=== PATIENT | male | born 1970 | race African-American/Black ===

== ENCOUNTER 2018-07-03 06:51 | Emergency (ER) | payer SELFPAY ==
[2018-07-03 06:54] VITALS: BP 144/92; PULSE 95; TEMP 97.8; BMI 25.8
[2018-07-03] MEDS ORDERED: SODIUM CHLORIDE 1,000 ML IV STA (07:33)
[2018-07-03 07:59] LABS: BASO % 0.3 % (0-2.0); EOS % 0.1 % (0-4.5); HEMATOCRIT 36.8 % (35.4-49); HEMOGLOBIN 12.2 GM/dL (11.7-16.9); LYMPH % 21.8 % (8-40); MCHC 33.2 g/dl (32.0-35.9); MEAN CELL VOLUME 84.5 fl (80-96); MONO % 16.5 % (3.8-10.2); NEUT % 61.3 % (42.8-82.8); RBC 4.35 M/mm3 (4.00-5.60); RDW 14.1 % (11.9-15.9); WHITE BLOOD COUNT 5.2 K/mm3 (4.0-10.0)
[2018-07-03 08:21] LABS: PROTHROMBIN TIME (PATIENT) 11.8 SEC (9.7-13.0)
[2018-07-03 08:35] LABS: ALBUMIN 3.6 g/dl (3.4-5.0); ALK PHOS 126 U/L (45-117); ANION GAP 17 MMOL/L (8-16); BILIRUBIN,TOTAL 0.4 mg/dL (0.2-1); BLOOD UREA NITROGEN 15 mg/dL (7-18); CALCIUM 8.3 mg/dL (8.5-10.1); CHLORIDE 100 mmol/L (98-107); CO2 20 mmol/L (21-32); CREATININE 0.6 mg/dL (0.55-1.3); GLUCOSE,RANDOM 93 mg/dL (74-106); MAGNESIUM 1.9 mg/dL (1.8-2.4); POTASSIUM 4.5 mmol/L (3.5-5.1); SGOT/AST 68 U/L (15-37); SGPT/ALT 41 U/L (13-61); SODIUM 137 mmol/L (136-145); TOT PROT 7.8 g/dl (6.4-8.2)
[2018-07-03] MEDS ORDERED: KETOROLAC TROMETHAMINE 15 MG/ML VIAL IVPUSH ONE (08:53)
[2018-07-03] MEDS ORDERED: KETOROLAC TROMETHAMINE 15 MG/ML VIAL ONE (09:14)
--- NOTE | 2018-07-03 09:14 | PDOC ---
Attending Attestation - Resident Resident Name: Agapito Coy - ED Attending Attestation I have performed the following: I have examined & evaluated the patient, The case was reviewed & discussed with the resident, I agree w/resident's findings & plan - HPI HPI: 07/03/18 11:28 Bull 47 YOM with h/o alcohol abuse and sz presenting with generalized body aches, thinks he may have had a seizure. Admits to drinking daily, including today with h/o detox. c/o knee pains bilaterally, worse in right than left after falling to his knee with episode of sz activity. - Physicial Exam PE: 07/03/18 10:26 clinically intoxicated, disheveled and malodorous. poor dentition. ROJSA x4, diffuse tenderness in legs, arms and body to palpation, no laxity at knees. palp tenderness diffusely in b/l anterior knees, worse in right than left. ROM intact. no focal findings. NVI, no focal neuro deficits. abdomen soft, NTND RRR, CTAB. no chest wall or back tenderness. WWP. 07/03/18 11:30 07/03/18 13:08 - Medical Decision Making 07/03/18 10:24 Bull 47 YOM with h/o alcohol abuse and sz presenting with generalized body aches, thinks he may have had a seizure. Admits to drinking daily, h/o detox. c/ o bilateral knee pains, worse on right. denies trauma. DDx. alcohol intoxication, alcohol withdrawal. drug intoxication, msk injuries. knee contusion Vital signs reviewed, wnl. Prior notes reviewed, including admissions, discharges and consultations. laboratory results and imaging reviewed, basic labs and lytes wnl CXR_clear, no acute pathology CT head given sz/etoh use, r/o bleed/[employer] injuries. CT head negative. b/l knee XR grossly neg for fx or injuries, can ambulate, some volitional component, as he is comfortable, MAEx4 w/o difficulty. EKG normal sinus rhythm, no interval abnormalities, borderline QTC interval ~ 497ms, narrow QRS, ST and T wave segments and morphology normal. Nonspecific T wave abnormalities, otherwise unremarkable. ED course: no acute events, remained stable and well appearing. Clinically improved after interventions, including IVF and analgesia. no seizures here, intoxicated, with elevated ETOH level as expected. pt monitored closely in the ED, sobriety hold. remained comfortable, no acute events, VS remain stable. at time of discharge, clinically improved, sober, speech clear, gait stable. tolerated PO intake. no acute neuro changes, normal mental status. no evidence of SI or HI or psychosis. discharge in stable condition. offered detox and resources for ETOH abuse. prompt follow up encouraged. 07/03/18 11:29 07/03/18 13:08 Heart Score/ECG Review - ECG Impressions Normal ECG: Yes Comment:: 07/03/18 11:30 EKG normal sinus rhythm, no interval abnormalities, borderline QTC interval ~ 497ms, narrow QRS, ST and T wave segments and morphology normal. Nonspecific T wave abnormalities, otherwise unremarkable.
[2018-07-03 09:27] LABS: MEAN PLT VOLUME 7.6 fl (7.5-11.1); PLATELET COUNT 89 K/MM3 (134-434)
--- NOTE | 2018-07-03 09:38 | PDOC ---
History of Present Illness - General Chief Complaint: Pain Stated Complaint: PAIN Time Seen by Provider: 07/03/18 07:14 History Source: Patient Exam Limitations: Intoxication - History of Present Illness Initial Comments: 07/03/18 09:30 Patient is a 47M with history of alcoholism and seizures here today complaining of a seizure this morning. He states that he saw spots in his vision, then lost consciousness but states that he did not hit his head. Denies etoh use. Denies neck, chest, back pain. Patient states that he fell to his knees and has pain to his patellas bilaterally. Denies fevers, chills, nausea, vomiting. Denies tongue biting and urinary incontinence. No postictal period. Past History - Past Medical History Allergies/Adverse Reactions: Allergies Allergy/AdvReac Type Severity Reaction Status Date / Time No Known Allergies Allergy Verified 07/03/18 06:52 Home Medications: Ambulatory Orders NK [No Known Home Medication] 12/17/14 Anemia: No Asthma: No Cancer: No Cardiac Disorders: No CVA: No COPD: No CHF: No DVT: No Dementia: No Diabetes: No GI Disorders: No Disorders: No HTN: No Hypercholesterolemia: No Kidney Stones: No Liver Disease: No Seizures: Yes Thyroid Disease: No - Surgical History Abdominal Surgery: No (ENDOSCOPY ON 10/02/14 AT [facility].) Appendectomy: No Cardiac Surgery: No Cholecystectomy: No Lung Surgery: No Neurologic Surgery: No Orthopedic Surgery: Yes (RT. KNEE ARTHROSCOPY FOR TORN MENISCUS) - Reproductive History Testicular Surgery: No - Suicide/Smoking/Psychosocial Hx Smoking History: Never smoked Have you smoked in the past 12 months: No Number of Cigarettes Smoked Daily: 1 Cigars Per Day: 1 Information on smoking cessation initiated: No 'Breaking Loose' booklet given: 12/08/14 Hx Alcohol Use: No Drug/Substance Use Hx: No Substance Use Type: Alcohol Hx Substance Use Treatment: Yes (completed 28 days in [facility] in 2013.Longest clean time 2 months) Review of Systems - Review of Systems Comments:: 07/03/18 09:38 GENERAL/CONSTITUTIONAL: No fever or chills. No weakness. HEAD, EYES, EARS, NOSE AND THROAT: No change in vision. No sore throat. CARDIOVASCULAR: No chest pain or shortness of breath RESPIRATORY: No cough, wheezing, or hemoptysis. GASTROINTESTINAL: No nausea, vomiting, diarrhea or constipation. GENITOURINARY: No dysuria, frequency, or change in urination. MUSCULOSKELETAL: +b/l knee pain. No neck or back pain. SKIN: No rash NEUROLOGIC: No headache, vertigo, +loss of consciousness ENDOCRINE: No increased thirst. No abnormal weight change HEMATOLOGIC/LYMPHATIC: No anemia, easy bleeding, or history of blood clots. ALLERGIC/IMMUNOLOGIC: No hives or skin allergy. *Physical Exam - Vital Signs Last Vital Signs Temp Pulse Resp BP Pulse Ox 97.8 F 95 H 20 144/92 99 07/03/18 06:52 07/03/18 06:52 07/03/18 06:52 07/03/18 06:52 07/03/18 06:52 - Physical Exam Comments: 07/03/18 09:39 GENERAL: Awake, alert, and fully oriented, in no acute distress, smells of alcohol KNEES: Distractable tenderness to patella, full ROM, neurovascularly intact. HEAD: No signs of trauma, normocephalic, atraumatic EYES: PERRLA, EOMI, sclera anicteric, conjunctiva clear ENT: Auricles normal inspection, hearing grossly normal, nares patent, oropharynx clear without exudates. Moist mucosa NECK: Normal ROM, supple, no lymphadenopathy, JVD, or masses LUNGS: No distress, speaks full sentences, clear to auscultation bilaterally HEART: Regular rate and rhythm, normal S1 and S2, no murmurs, rubs or gallops, peripheral pulses normal and equal bilaterally. ABDOMEN: Soft, nontender, normoactive bowel sounds. No guarding, no rebound. No masses EXTREMITIES: Normal inspection, Normal range of motion, no edema. No clubbing or cyanosis. NEUROLOGICAL: Cranial nerves II through XII grossly intact. Normal speech, no focal sensorimotor deficits SKIN: Warm, Dry, normal turgor, no rashes or lesions noted. Procedures - Bedside Ultrasound Other: Peds Abdominal Remarks: 07/03/18 12:28 No appendix visualized. ED Treatment Course - LABORATORY CBC & Chemistry Diagram: 07/03/18 07:45 07/03/18 07:45 - ADDITIONAL ORDERS Additional order review: Laboratory Results 07/03/18 07/03/18 07:45 07:45 PT with INR 11.80 INR 1.00 Sodium 137 Potassium 4.5 Chloride 100 Carbon Dioxide 20 L Anion Gap 17 H BUN 15 Creatinine 0.6 Creat Clearance w eGFR > 60 Random Glucose 93 Calcium 8.3 L Magnesium 1.9 Total Bilirubin 0.4 AST 68 H ALT 41 Alkaline Phosphatase 126 H Creatine Kinase 273 Creatine Kinase Index 0.3 CK-MB (CK-2) < 1.0 Troponin I < 0.02 Total Protein 7.8 Albumin 3.6 Alcohol, Quantitative 182.0 H 07/03/18 07:45 RBC 4.35 MCV 84.5 MCHC 33.2 RDW 14.1 Neutrophils % 61.3 D Lymphocytes % 21.8 D Monocytes % 16.5 H Eosinophils % 0.1 D Basophils % 0.3 - RADIOLOGY Radiology Studies Ordered: Category Date Time Status HEAD CT WITHOUT CONTRAST [CT] Stat CT Scan 07/03/18 07:33 Ordered CHEST X-RAY PORTABLE* [RAD] Stat Radiology 07/03/18 07:33 Completed - Medications Given in the ED: ED Medications Discontinued Medications Generic Name Dose Route Start Last Admin Trade Name Freq PRN Reason Stop Dose Admin Sodium Chloride 1,000 mls @ 1,000 mls/hr 07/03/18 07:33 07/03/18 07:52 Normal Saline - IV 07/03/18 08:32 1,000 mls/hr ASDIR STA Administration Ketorolac Tromethamine 15 mg 07/03/18 08:53 07/03/18 09:14 Toradol Injection - IVPUSH 07/03/18 08:54 15 mg ONCE ONE Administration Medical Decision Making - Medical Decision Making 07/03/18 09:40 Patient is 47M with history of seizures and etoh abuse here today with likely alcohol intoxication. Patient reporting seizure activity, but history not consistent with seizure. Stable now. DDx includes, but is not limited to: intox , seizure, syncope. Will do cardiac workup, head ct. Will treat with fluids and toradol. Knee pain not consistent with fracture/dislocation. No need for x-ray at this time. EKG shows normal sinus rhythm with rate of 85. No st elevations/depressions. Normal axis. Normal intervals. T wave inversions in V2/V3. ETOH level elevated, other labs reassuring. Suspect likely intox, pending CT. 07/03/18 10:[address] neg. CXR shows no acute cardiopulmonary process. 07/03/18 13:04 X-rays negative for fracture. Patient is alert, speech is not slurred, walking with steady gait. Asking for ride home. Discharged with return precautions. *DC/Admit/Observation/Transfer Diagnosis at time of Disposition: Chronic alcoholism - Discharge Dispostion Disposition: HOME Condition at time of disposition: Good Decision to Admit order: No - Referrals Referrals: Clifford Melendez DO [Staff Physician] - [facility] [place] [Provider Group] - Patient Instructions Printed Discharge Instructions: DI for Alcohol Abuse Additional Instructions: Please follow up with your primary care doctor in the next week. A primary care provider has been included in your paperwork if you do not have one. Please follow up with the neurologist in your paperwork. Please stop drinking as it is harming your life. Please return if you have any new, worsening or concerning symptoms, especially fever, seizures, weakness. - Post Discharge Activity
[2018-07-03] MEDS ORDERED: ACETAMINOPHEN 325 MG TABLET (FP) PO ONE (11:00)
[2018-07-03] MEDS ORDERED: ACETAMINOPHEN 325 MG TABLET (FP) ONE ×2 (12:14→12:20)
--- NOTE | 2018-07-04 19:07 | EKG ---
Test Reason : Blood Pressure : / mmHG Vent. Rate : 085 BPM Atrial Rate : 085 BPM P-R Int : 146 ms QRS Dur : 080 ms QT Int : 418 ms P-R-T Axes : 067 064 083 degrees QTc Int : 497 ms NORMAL SINUS RHYTHM NONSPECIFIC T WAVE ABNORMALITY PROLONGED QT ABNORMAL ECG NO PREVIOUS ECGS AVAILABLE Confirmed by MOLLY DALTON, MIAH ([id number]) on 07/04/2018 7:07:27 PM Referred By: Confirmed By:MIAH BARNES MD
== END 2018-07-03 13:49 | disposition home or self-care (01) ==
LOC: JER 06:51
PROC: 3E0337Z Introduction of Electrolytic and Water Balance Substance into Peripheral Vein, Percutaneous Approach (ICD-10-PCS; principal; 2018-07-03)
PROC: 3E0333Z Introduction of Anti-inflammatory into Peripheral Vein, Percutaneous Approach (ICD-10-PCS; 2018-07-03)
DX: F10.120 Alcohol abuse with intoxication, uncomplicated (principal); Y90.6 Blood alcohol level of 120-199 mg/100 ml; R56.9 Unspecified convulsions; M25.561 Pain in right knee; M25.562 Pain in left knee; W18.39XA Other fall on same level, initial encounter; Y93.89 Activity, other specified; Y92.89 Other specified places as the place of occurrence of the external cause; Y99.8 Other external cause status
CPT/HCPCS: 36415; 70450-TC; 71045-TC-FY; 73562-TC-LT-FY; 73562-TC-RT-FY; 80053; 80307; 82550; 82553; 83735; 84484; 85025; 85610; 93005; 93010; 99285-25; J7030

== ENCOUNTER 2018-07-03 23:17 | Emergency (ER) | payer SELFPAY ==
[2018-07-03 23:23] VITALS: BP 122/85; PULSE 106; TEMP 98.7; BMI 22.8
--- NOTE | 2018-07-03 23:23 | PDOC ---
Attending Attestation - HPI HPI: 07/03/18 23:56 Patient is a 47 YOM with history of alcoholism and seizures here today complaining of a seizure this afternoon and right leg pain from a seizure earlier this morning. Patient reports the seizure was unwitnessed and denies any head trauma. Patient admits to drinking daily and has been to detox in the past. Patient was seen in this ED earlier today but was discharged home as all his labs were normal. Patient is requesting detox and pain medications at this time. Patient has not seen a neurologist. Patient denies fevers, chills, chest pain, sob, nausea, vomiting. Denies tongue biting and urinary incontinence. No postictal period. Allergies: NKA Past surgical history: None reported. Social history: Alcohol use daily. No reported drug, or cigarette use. - Physicial Exam PE: 07/04/18 00:03 ADULT EXAM GENERAL: Awake, alert, and fully oriented, in no acute distress HEAD: No signs of trauma EYES: PERRLA, EOMI, sclera anicteric, conjunctiva clear ENT: Auricles normal inspection, hearing grossly normal, nares patent, oropharynx clear without exudates. Moist mucosa NECK: Normal ROM, supple, no lymphadenopathy, JVD, or masses LUNGS: Breath sounds equal, clear to auscultation bilaterally. No wheezes, and no crackles HEART: Regular rate and rhythm, normal S1 and S2, no murmurs, rubs or gallops ABDOMEN: Soft, nontender, normoactive bowel sounds. No guarding, no rebound. No masses EXTREMITIES: Normal range of motion, no edema. No clubbing or cyanosis. No cords , erythema, or tenderness NEUROLOGICAL: Cranial nerves II through XII grossly intact. Normal speech, normal gait SKIN: Warm, Dry, normal turgor, no rashes or lesions noted. <Mary Coelho - Last Filed: 07/04/18 00:00> - Resident Resident Name: Flaquita Lopez - ED Attending Attestation I have performed the following: I have examined & evaluated the patient, The case was reviewed & discussed with the resident, I agree w/resident's findings & plan - Medical Decision Making 07/04/18 00:06 Pt will go to alcohol detox at [facility], Dr. Hanson is aware and accepts the patient. 07/04/18 00:[address] scan from earlier today normal. ETOH level 182 earlier today. Pt wll be sent to detox with our security team. <Yumi Dixon - Last Filed: 07/04/18 00:13>
--- NOTE | 2018-07-03 23:27 | PDOC ---
History of Present Illness - General Stated Complaint: SEIZURE Time Seen by Provider: 07/03/18 23:21 - History of Present Illness Initial Comments: 47yo M with history of chronic alcoholism and seizures presenting with seizure. Patient was seen in the ED earlier today for similar complaint. Since discharge , he reports drinking one cup of [place]. He reports having a seizure witnessed by his friend while they were watching television. Patient was a difficult historian with tangential speech. Does not have a neurologist and has never taken anti-seizure medicines. Reports leg pain as a result of a fall from his first seizure. Patient is amenable to detox. Reports chills. Denies fever, chest pain, shortness of breath, or abdominal pain. Past History - Past Medical History Allergies/Adverse Reactions: Allergies Allergy/AdvReac Type Severity Reaction Status Date / Time No Known Allergies Allergy Verified 07/03/18 23:23 Home Medications: Ambulatory Orders NK [No Known Home Medication] 12/17/14 Anemia: No Asthma: No Cancer: No Cardiac Disorders: No CVA: No COPD: No CHF: No DVT: No Dementia: No Diabetes: No GI Disorders: No Disorders: No HTN: No Hypercholesterolemia: No Kidney Stones: No Liver Disease: No Seizures: Yes Thyroid Disease: No - Surgical History Abdominal Surgery: No (ENDOSCOPY ON 10/02/14 AT [facility] Appendectomy: No Cardiac Surgery: No Cholecystectomy: No Lung Surgery: No Neurologic Surgery: No Orthopedic Surgery: Yes (RT. KNEE ARTHROSCOPY FOR TORN MENISCUS) - Reproductive History Testicular Surgery: No - Immunization History Immunization Up to Date: Yes - Suicide/Smoking/Psychosocial Hx Smoking History: Unknown if ever smoked Have you smoked in the past 12 months: No Number of Cigarettes Smoked Daily: 1 Cigars Per Day: 1 'Breaking Loose' booklet given: 12/08/14 Hx Alcohol Use: No Drug/Substance Use Hx: No Substance Use Type: Alcohol Hx Substance Use Treatment: Yes (completed 28 days in [facility] in 2013.Longest clean time 2 months) Review of Systems - Review of Systems Comments:: Constitutional: no fever, no chills HEENT: no throat pain, no dysphagia Cardiovascular: no chest pain, no palpitations Respiratory: no cough, no shortness of breath Gastrointestinal: no abdominal pain, no nausea, no vomiting Genitourinary: no dysuria, no frequency Musculoskeletal: no myalgia, no arthralgia Skin: no rash, no itching Neurologic: +seizure, no dizziness *Physical Exam - Vital Signs Last Vital Signs Temp Pulse Resp BP Pulse Ox 98.7 F 106 H 18 122/85 100 07/03/18 23:21 07/03/18 23:21 07/03/18 23:21 07/03/18 23:21 07/03/18 23:21 - Physical Exam Comments: General: Awake, alert, and fully oriented, in no acute distress Head: No signs of trauma Eyes: EOMI, sclera anicteric; no horizontal nystagmus ENT: Moist mucus membranes, no tongue fasciculation noted Neck: Normal ROM, supple Lungs: Lungs clear, Normal breath sounds Cardio: Regular rhythm, S1 and S2 present Abdomen: Soft, nontender. No guarding, no rebound, no masses Extremities: Normal range of motion, Distal pulses present SKIN: Warm, Dry, normal turgor Neurologic: Cranial nerves II through XII grossly intact. Tangential speech Medical Decision Making - Medical Decision Making 47yo M with history of chronic alcoholism and seizures presenting with seizure. -History suggestive of seizures as a result of alcohol withdrawal -Patient is amenable to detox for his alcoholism 07/03/18 23:26 Bed is available at [facility]. Will discharge. crew clerk notified regarding patient's transportation. 07/04/18 00:17 *DC/Admit/Observation/Transfer Diagnosis at time of Disposition: Chronic alcoholism - Discharge Dispostion Disposition: HOME Condition at time of disposition: Stable - Referrals Referrals: [facility] [place] [Provider Group] - Patient Instructions Printed Discharge Instructions: DI for Alcohol Abuse Additional Instructions: Present voluntarily to detox. We called ahead and were told that a bed is available for you. It is important to follow up with a primary care doctor this week to discuss this visit and further assess your symptoms. Your care is not complete until you do so. Call and make an appointment. You have been referred to the [facility]. Immediate medical attention is required if you have develop tremors or hallucinations and do not have access to alcohol, vomiting, chest pain, shortness of breath, abdominal pain, thoughts of self-harm, or an other new or concerning symptoms. If you think you are having an emergency, call for emergency medical services or present to the emergency department right away. - Post Discharge Activity
== END 2018-07-04 00:26 | disposition home or self-care (01) ==
LOC: JER 23:17
DX: F10.220 Alcohol dependence with intoxication, uncomplicated (principal); R56.9 Unspecified convulsions
CPT/HCPCS: 99281-25

== ENCOUNTER 2018-07-04 01:44 | Inpatient (IN) | payer OTHER ==
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
[2018-07-04 02:08] VITALS: BMI 19.5
[2018-07-04] MEDS ORDERED: MENTHOL/PHENOL 1 EACH UD MM PRN (02:08)
[2018-07-04] MEDS ORDERED: LOPERAMIDE HCL 2 MG CAPSULE PO PRN (02:08)
[2018-07-04] MEDS ORDERED: IBUPROFEN 400 MG TABLET (FP) PO PRN (02:08)
[2018-07-04] MEDS ORDERED: guaiFENesin/D-METHORPHAN HB 10 ML UNIT-DOSE CUPS PO PRN (02:08)
[2018-07-04] MEDS ORDERED: chlordiazePOXIDE HCL 25 MG CAPSULE PO PRN (02:08)
[2018-07-04] MEDS ORDERED: MAGNESIUM CITRATE 300 ML BOTTLE PO PRN (02:08)
[2018-07-04] MEDS ORDERED: MAG HYDROX/AL HYDROX/SIMETH 30 ML UNIT-DOSE CUP PO PRN (02:08)
[2018-07-04] MEDS ORDERED: P-EPHED 60MG/TRIPROLIDI 2.5MG TABLET PO PRN (02:08)
[2018-07-04] MEDS ORDERED: chlordiazePOXIDE HCL 25 MG CAPSULE PO ONE (02:08)
[2018-07-04] MEDS ORDERED: ACETAMINOPHEN 325 MG TABLET (FP) PO PRN (02:08)
[2018-07-04] MEDS ORDERED: hydrOXYzine PAMOATE 25 MG CAPSULE (FP) PO PRN (02:08)
[2018-07-04] MEDS ORDERED: MAGNESIUM HYDROX 2400MG/30ML ORAL SUSPENSION 30 ML CUP PO PRN (02:08)
[2018-07-04] MEDS ORDERED: NICOTINE POLACRILEX 2 MG GUM BC PRN (02:08)
[2018-07-04] MEDS: chlordiazePOXIDE HCL 25 MG CAPSULE PO SCH ×2 (05:45→10:12)
[2018-07-04] MEDS ORDERED: PRENATAL VITAMINS W/ FOLIC ACID TABLET (FP) PO SCH (10:00)
[2018-07-04 10:02] VITALS: BP 99/57; TEMP 97.8
[2018-07-04 15:20] VITALS: PULSE 94
--- NOTE | 2018-07-04 16:12 | DS ---
[facility] Detox Discharge Summary Admission Date: 07/04/18 Discharge Date: 07/04/18 - History Present History: Alcohol Dependence Additional Comments: Patient decided to leave AMA stating that his grandmother is sick and that he has to take care of her. Patient encouraged to complete detox but he refused. Patient instructed to call 911 if he is feeling sick or any withdrawal sxs and to see his PCP in 3 days. Patient is A/A/Ox3, in nad, ambulatory. Pertinent Past History: Seizure related to alcohol withdrawal Nicotine dependence Alcohol dependence - Physical Exam Results Vital Signs: Vital Signs Temperature 97.8 F 07/04/18 10:01 Pulse Rate 94 H 07/04/18 15:00 Respiratory Rate 18 07/04/18 15:00 Blood Pressure 99/57 L 07/04/18 10:01 O2 Sat by Pulse Oximetry (%) Pertinent Admission Physical Exam Findings: Withdrawal sxs No labs available for review - Medication Discharge Medications: Ambulatory Orders NK [No Known Home Medication] 12/17/14 - Diagnosis (1) Alcohol dependence, continuous Status: Acute (2) Nicotine dependence Status: Chronic (3) Seizure Status: Chronic - AMA Did Patient Leave Against Medical Advice: Yes (Instructed to call 911 if withdrawal sxs or feeling sick)
[2018-07-04] MEDS ORDERED: THIAMINE HCL 100 MG TABLET (FP) PO SCH (22:00)
[2018-07-04] MEDS ORDERED: MELATONIN 5 MG TABLETS PO PRN (22:00)
[2018-07-05] MEDS ORDERED: chlordiazePOXIDE HCL 25 MG CAPSULE PO SCH (05:00)
--- NOTE | 2018-07-05 10:51 | EKG ---
Test Reason : Blood Pressure : / mmHG Vent. Rate : 090 BPM Atrial Rate : 090 BPM P-R Int : 140 ms QRS Dur : 082 ms QT Int : 374 ms P-R-T Axes : 072 057 079 degrees QTc Int : 457 ms NORMAL SINUS RHYTHM CANNOT RULE OUT ANTERIOR INFARCT , AGE UNDETERMINED ABNORMAL ECG WHEN COMPARED WITH ECG OF 03-JUL-2018 08:45, T WAVE VARIATION Confirmed by MIAH BARNES MD ([id number]) on 07/05/2018 10:51:49 AM Referred By: Confirmed By:MIAH BARNES MD
[2018-07-06] MEDS ORDERED: chlordiazePOXIDE 5 MG CAPSULE PO SCH (05:00)
[2018-07-07] MEDS ORDERED: chlordiazePOXIDE HCL 10 MG CAPSULE PO SCH (05:00)
== END 2018-07-04 15:18 | disposition left against medical advice (07) | DRG 770 ==
LOC: YASAS 01:44 → Y3N 01:57
PROC: HZ2ZZZZ Detoxification Services for Substance Abuse Treatment (ICD-10-PCS; principal; 2018-07-04)
DX: F10.20 Alcohol dependence, uncomplicated (principal); F17.210 Nicotine dependence, cigarettes, uncomplicated; G40.509 Epileptic seizures related to external causes, not intractable, without status epilepticus
CPT/HCPCS: 93005; 93010

== ENCOUNTER 2018-07-06 05:11 | Emergency (ER) | payer OTHER ==
[2018-07-06 06:14] VITALS: BP 132/81; PULSE 100; TEMP 97.2; BMI 21.9
--- NOTE | 2018-07-06 07:34 | PDOC ---
History of Present Illness - General Chief Complaint: Syncope/Near Syncope Stated Complaint: SEIZURES Time Seen by Provider: 07/06/18 07:15 History Source: Patient Exam Limitations: Intoxication - History of Present Illness Initial Comments: 07/06/18 07:29 Patient is a 47M with history of reported seizures and alcohol abuse here today stating that he had two seizures today. Patient states that he was watching Thursday Night Football when he collapsed, waking up 5 minutes later with no confusion. This happened twice, witnessed by a friend. Patient came into ED with similar complaint last week, was intoxicated, history not consistent with seizure at that time. Workup, including labs, ekg, cxr, and head ct was negative. Patient returned to the ED 2 hours after discharge and reported drinking 1 cup of [place]. Patient denies post-ictal period, nausea, vomiting, tongue biting, head trauma, urination. Denies headache. Denies history of ICU admissions, denies withdrawal. Past History - Past Medical History Allergies/Adverse Reactions: Allergies Allergy/AdvReac Type Severity Reaction Status Date / Time No Known Allergies Allergy Verified 07/06/18 06:13 Home Medications: Ambulatory Orders NK [No Known Home Medication] 12/17/14 Anemia: No Asthma: No Cancer: No Cardiac Disorders: No CVA: No COPD: No CHF: No DVT: No Dementia: No Diabetes: No GI Disorders: No Disorders: No HTN: No Hypercholesterolemia: No Kidney Stones: No Liver Disease: No Seizures: Yes Thyroid Disease: No - Surgical History Abdominal Surgery: No (ENDOSCOPY ON 10/02/14 AT [facility] Appendectomy: No Cardiac Surgery: No Cholecystectomy: No Lung Surgery: No Neurologic Surgery: No Orthopedic Surgery: Yes (RT. KNEE ARTHROSCOPY FOR TORN MENISCUS) - Reproductive History Testicular Surgery: No - Immunization History Immunization Up to Date: Yes - Suicide/Smoking/Psychosocial Hx Smoking History: Never smoked Have you smoked in the past 12 months: No Number of Cigarettes Smoked Daily: 1 Cigars Per Day: 1 Information on smoking cessation initiated: No 'Breaking Loose' booklet given: 07/04/18 Hx Alcohol Use: No Drug/Substance Use Hx: No Substance Use Type: Alcohol Hx Substance Use Treatment: Yes Review of Systems - Review of Systems Comments:: 07/06/18 07:41 GENERAL/CONSTITUTIONAL: No fever or chills. No weakness. HEAD, EYES, EARS, NOSE AND THROAT: No change in vision. No sore throat. CARDIOVASCULAR: No chest pain or shortness of breath RESPIRATORY: No cough, wheezing, or hemoptysis. GASTROINTESTINAL: No nausea, vomiting, diarrhea or constipation. GENITOURINARY: No dysuria, frequency, or change in urination. MUSCULOSKELETAL: No joint or muscle swelling or pain. No neck or back pain. SKIN: No rash NEUROLOGIC: No headache, vertigo, +loss of consciousness ENDOCRINE: No increased thirst. No abnormal weight change HEMATOLOGIC/LYMPHATIC: No anemia, easy bleeding, or history of blood clots. ALLERGIC/IMMUNOLOGIC: No hives or skin allergy. *Physical Exam - Vital Signs Last Vital Signs Temp Pulse Resp BP Pulse Ox 97.2 F L 100 H 18 132/81 98 07/06/18 05:15 07/06/18 05:15 07/06/18 05:15 07/06/18 05:15 07/06/18 05:15 - Physical Exam Comments: 07/06/18 07:42 GENERAL: Awake, alert, and fully oriented, in no acute distress HEAD: No signs of trauma, normocephalic, atraumatic EYES: PERRLA, EOMI, sclera anicteric, conjunctiva clear ENT: Auricles normal inspection, hearing grossly normal, nares patent, oropharynx clear without exudates. Moist mucosa NECK: Normal ROM, supple, no lymphadenopathy, JVD, or masses LUNGS: No distress, speaks full sentences, clear to auscultation bilaterally HEART: Regular rate and rhythm, normal S1 and S2, no murmurs, rubs or gallops, peripheral pulses normal and equal bilaterally. ABDOMEN: Soft, nontender, normoactive bowel sounds. No guarding, no rebound. No masses EXTREMITIES: Normal inspection, Normal range of motion, no edema. No clubbing or cyanosis. NEUROLOGICAL: Cranial nerves II through XII grossly intact. Normal speech, no focal sensorimotor deficits SKIN: Warm, Dry, normal turgor, no rashes or lesions noted. ED Treatment Course - LABORATORY CBC & Chemistry Diagram: 07/06/18 07:33 07/06/18 07:33 - RADIOLOGY Radiology Studies Ordered: Category Date Time Status CHEST X-RAY PORTABLE* [RAD] Stat Radiology 07/06/18 07:22 Ordered Medical Decision Making - Medical Decision Making 07/06/18 07:42 Patient is 47M with history of reported seizures (no medications), and alcohol abuse here today reporting having a seizure. Recent work up showed no evidence of seizure, only intox. Will repeat workup without head ct as one done 1 week ago. 07/06/18 08:57 Laboratory Tests 07/06/18 07/06/18 07/06/18 07:33 07:33 07:33 WBC 4.5 Hgb 10.3 L Plt Count 89 L INR 1.04 Alcohol, Quantitative 58.9 H CBC normal. CMP reassuring. Etoh+. 07/06/18 08:57 CXR shows no acute pathology. Case management discussed patient, does not want to go to rehab. 07/06/18 09:01 Patient alert, given librium for tachycardia to prevent withdrawal. Patient is alert walking with steady gait. Do not believe patient is having or had a seizure. Will discharge home. 07/06/18 09:24 EKG shows normal sinus rhythm with rate of 87. No st elevations/depressions. Normal axis. Normal intervals. No significant t wave elevations. Discharge placed. *DC/Admit/Observation/Transfer Diagnosis at time of Disposition: Alcohol intoxication - Discharge Dispostion Disposition: HOME Condition at time of disposition: Good Decision to Admit order: No - Referrals Referrals: Doris Porter MD [Primary Care Provider] - Randy Parrish MD [Staff Physician] - - Patient Instructions Printed Discharge Instructions: DI for Alcohol Abuse Additional Instructions: Please stop drinking as it is negatively affecting your life. Please follow up with neurology, a number has been included in your paperwork. Please return to the ED if you have any new, worsening or concerning symptoms. - Post Discharge Activity
[2018-07-06 07:54] LABS: BASO % 0.3 % (0-2.0); EOS % 1.7 % (0-4.5); HEMATOCRIT 31.2 % (35.4-49); HEMOGLOBIN 10.3 GM/dL (11.7-16.9); LYMPH % 31.9 % (8-40); MCHC 33.2 g/dl (32.0-35.9); MEAN CELL VOLUME 84.4 fl (80-96); MEAN PLT VOLUME 8.3 fl (7.5-11.1); MONO % 17.3 % (3.8-10.2); NEUT % 48.8 % (42.8-82.8); PLATELET COUNT 89 K/MM3 (134-434); RBC 3.69 M/mm3 (4.00-5.60); RDW 13.5 % (11.9-15.9); WHITE BLOOD COUNT 4.5 K/mm3 (4.0-10.0)
[2018-07-06 08:04] LABS: INR 1.04 (0.83-1.09); PROTHROMBIN TIME (PATIENT) 12.3 SEC (9.7-13.0)
[2018-07-06 08:19] LABS: ALK PHOS 110 U/L (45-117); ANION GAP 11 MMOL/L (8-16); BILIRUBIN,TOTAL 0.5 mg/dL (0.2-1); BLOOD UREA NITROGEN 6 mg/dL (7-18); CALCIUM 8.5 mg/dL (8.5-10.1); CHLORIDE 102 mmol/L (98-107); CO2 23 mmol/L (21-32); CREATININE 0.6 mg/dL (0.55-1.3); GLUCOSE,RANDOM 75 mg/dL (74-106); MAGNESIUM 1.5 mg/dL (1.8-2.4); POTASSIUM 3.5 mmol/L (3.5-5.1); SGOT/AST 66 U/L (15-37); SGPT/ALT 37 U/L (13-61); SODIUM 135 mmol/L (136-145); TOT PROT 6.6 g/dl (6.4-8.2)
[2018-07-06] MEDS ORDERED: chlordiazePOXIDE HCL 25 MG CAPSULE PO ONE (08:56)
[2018-07-06] MEDS ORDERED: chlordiazePOXIDE HCL 25 MG CAPSULE ONE (09:17)
--- NOTE | 2018-07-06 09:27 | PDOC ---
Attending Attestation - Resident Resident Name: Agapito Coy - ED Attending Attestation I have performed the following: I have examined & evaluated the patient, The case was reviewed & discussed with the resident, I agree w/resident's findings & plan - HPI HPI: 07/06/18 09:25 47-year-old male history of polysubstance abuse and alcoholism presents with near syncopal episode, denies any specific cardiopulmonary complaints. Has been seen in the past for similar episodes, no change in pattern. No injury, asymptomatic at this time and feeling well. - Physicial Exam PE: 07/06/18 09:25 Vital signs are within normal limits, heart rate 90 at my examination Seated, eating sandwich Heart is regular without murmurs Lungs are clear Neurologically nonfocal No evidence of traumatic injury - Medical Decision Making 07/06/18 09:26 47-year-old male with alcohol intake and near syncope, no cardiopulmonary complaints. Has been seen in the past few days for similar symptoms, likely secondary to alcohol intake. Labs notable for hemoglobin of 10, slight anemia but unlikely to be the etiology of his symptoms. We'll follow up with PCP. Troponin negative, EKG without acute ischemic changes compared to 07/04/18 Ambulating steadily, agrees with discharge plan and understands return criteria. Heart Score/ECG Review #1 ECG reviewed & interpreted by me at: 08:49 General ECG Interpretation: Sinus Rhythm, Normal Rate (87), Normal Intervals ( qtc 476), No acute ischemic changes Compared to previous ECG there are: No significant change (07/04/18)
--- NOTE | 2018-07-06 16:22 | EKG ---
Test Reason : Blood Pressure : / mmHG Vent. Rate : 087 BPM Atrial Rate : 087 BPM P-R Int : 138 ms QRS Dur : 082 ms QT Int : 396 ms P-R-T Axes : 056 040 059 degrees QTc Int : 476 ms NORMAL SINUS RHYTHM CANNOT RULE OUT ANTERIOR INFARCT (CITED ON OR BEFORE 04-JUL-2018) ABNORMAL ECG WHEN COMPARED WITH ECG OF 04-JUL-2018 03:21, NO SIGNIFICANT CHANGE WAS FOUND Confirmed by MD Jude, Forest ([id number]) on 07/06/2018 4:22:12 PM Referred By: Confirmed By:Forest Roque MD
== END 2018-07-06 09:10 | disposition home or self-care (01) ==
LOC: JER 05:11
DX: R56.9 Unspecified convulsions (principal); F10.120 Alcohol abuse with intoxication, uncomplicated; Y90.2 Blood alcohol level of 40-59 mg/100 ml
CPT/HCPCS: 36415; 71045-TC-FY; 80053; 80307; 82550; 82553; 83735; 84484; 85025; 85610; 93005; 93010; 99282-25

== ENCOUNTER 2018-07-06 18:03 | Inpatient (IN) | payer OTHER ==
[2018-07-06 19:17] VITALS: BMI 20.3
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
[2018-07-06] MEDS ORDERED: MAG HYDROX/AL HYDROX/SIMETH 30 ML UNIT-DOSE CUP PO PRN (21:45)
[2018-07-06] MEDS ORDERED: P-EPHED 60MG/TRIPROLIDI 2.5MG TABLET PO PRN (21:45)
[2018-07-06] MEDS ORDERED: MAGNESIUM CITRATE 300 ML BOTTLE PO PRN (21:45)
[2018-07-06] MEDS ORDERED: chlordiazePOXIDE HCL 25 MG CAPSULE PO PRN (21:45)
[2018-07-06] MEDS ORDERED: guaiFENesin/D-METHORPHAN HB 10 ML UNIT-DOSE CUPS PO PRN (21:45)
[2018-07-06] MEDS ORDERED: LOPERAMIDE HCL 2 MG CAPSULE PO PRN (21:45)
[2018-07-06] MEDS ORDERED: NICOTINE POLACRILEX 2 MG GUM BUC PRN (21:45)
[2018-07-06] MEDS ORDERED: MAGNESIUM HYDROX 2400MG/30ML ORAL SUSPENSION 30 ML CUP PO PRN (21:45)
[2018-07-06] MEDS ORDERED: IBUPROFEN 400 MG TABLET (FP) PO PRN (21:45)
[2018-07-06] MEDS ORDERED: ACETAMINOPHEN 325 MG TABLET (FP) PO PRN (21:45)
[2018-07-06] MEDS ORDERED: hydrOXYzine PAMOATE 50 MG CAPSULE (FP) PO PRN (21:45)
[2018-07-06] MEDS ORDERED: MELATONIN 5 MG TABLETS PO PRN (22:00)
[2018-07-06] MEDS: chlordiazePOXIDE HCL 25 MG CAPSULE PO SCH (22:39)
[2018-07-06] MEDS: THIAMINE HCL 100 MG TABLET (FP) PO SCH (22:39)
[2018-07-07] MEDS: chlordiazePOXIDE HCL 25 MG CAPSULE PO SCH ×4 (05:14→22:30)
--- NOTE | 2018-07-07 07:46 | CONSULT ---
[facility] Psychiatric Consult - Data Date of interview: 07/07/18 Admission source: [facility] Identifying data: This is a 47 years old makle, single, living wht family, unemolyed, wirh ni income, with no psychiatric hospitalization history reports Alcohol, Nicotine dependence, reports withdrawal zymptoms and seeking detox. Substance Abuse History: - Smoking Cessation. Smoking history: Current every day smoker. Have you smoked in the past 12 months: Yes. Aproximately how many cigarettes per day: 1. Cigars Per Day: 1. Hx Chewing Tobacco Use: No. Initiated information on smoking cessation: Yes. 'Breaking Loose' booklet given : 07/06/18. - Substance & Tx. History. Hx Alcohol Use: Yes. Hx Substance Use : Yes. Substance Use Type: Alcohol. Hx Substance Use Treatment: Yes ([facility]). - Substances Abused. Alcohol. Route: Oral. Frequency: Daily. Amount used : 2 24 oz beers. Age of first use: 42. Date of Last Use: 07/06/18 Medical History: Seizyre history, Syncope history, LBP Psychiatric History: Patient reports history depression and anxiety, denies psychiatircmmanagement, denies psychiatorc hospitalization history as well. Physical/Sexual Abuse/Trauma History: Denies Additional Comment: Observation. Detox Unit Care Protocol Mental Status Exam - Mental Status Exam Alert and Oriented to: Person Cognitive Function: Fair Patient Appearance: Unkempt Mood: Sad Affect: Flat Patient Behavior: Sedated Speech Pattern: Delayed Voice Loudness: Mildly Soft/Quiet Thought Process: Circumstantial, Goal Oriented Thought Disorder: Being Controlled Hallucinations: Denies Suicidal Ideation: Denies Homicidal Ideation: Denies Insight/Judgement: Fair Sleep: Poorly Muscle strength/Tone: Mild Hypotonicity Gait/Station: Deferred Additional Comments: Observation. Detox Unit Care Protocol Psychiatric Findings - Problem List ([place] 1, 2,3) (1) Alcohol dependence with uncomplicated withdrawal Current Visit: Yes Status: Acute (2) Nicotine dependence Current Visit: Yes Status: Chronic Qualifiers: Nicotine product type: cigarettes Substance use status: uncomplicated Qualified Code(s): F17.210 - Nicotine dependence, cigarettes, uncomplicated (3) Drug-induced mood disorder Current Visit: Yes Status: Suspected Comment: FEELS DEPRESSED (4) Withdrawal seizures Current Visit: Yes Status: Suspected Qualifiers: Complication of substance-induced condition: uncomplicated Qualified Code(s ): F19.230 - Other psychoactive substance dependence with withdrawal, uncomplicated; R56.9 - Unspecified convulsions (5) Alcohol dependence, continuous Current Visit: No Status: Acute (6) Alcohol intoxication Current Visit: No Status: Acute (7) Chronic alcoholism Current Visit: No Status: Acute (8) Seizure Current Visit: No Status: Chronic (9) Syncope Current Visit: No Status: Chronic (10) Traumatic fracture of facial bones Current Visit: No Status: Chronic - Initial Treatment Plan Initial Treatment Plan: Observation. Detox Unit Care Protocol
--- NOTE | 2018-07-07 09:58 | PN ---
S CIWA - CIWA Score Nausea/Vomitin-Mild Nausea/No Vomiting Muscle Tremors: 2 Anxiety: 1-Mildly Anxious Agitation: 1-Slight > Activity Paroxysmal Sweats: 1-Minimal Palms Moist Orientation: 0-Oriented Tacttile Disturbances: 0-None Auditory Disturbances: 0-None Visual Disturbances: 0-None Headache: 0-None Present CIWA-Ar Total Score: 6 BHS Progress Note (SOAP) Subjective: Pt was admitted last night for alcohol withdrawal Sx- pt had seizures the day prior. Pt states he is feeling better this morning. Vital Signs - 24 hr 07/06/18 07/06/18 07/06/18 19:15 22:30 23:00 Temperature 97.6 F Pulse Rate 101 H 94 H 89 Respiratory 18 18 18 Rate Blood Pressure 136/74 07/06/18 07/07/18 07/07/18 23:30 00:00 00:30 Temperature Pulse Rate 18 L 93 H 93 H Respiratory 91 H 18 18 Rate Blood Pressure 07/07/18 07/07/18 07/07/18 01:00 01:30 02:00 Temperature Pulse Rate 89 87 85 Respiratory 18 18 18 Rate Blood Pressure 07/07/18 07/07/18 07/07/18 02:30 03:00 03:30 Temperature Pulse Rate 83 83 85 Respiratory 18 18 18 Rate Blood Pressure 07/07/18 07/07/18 07/07/18 04:00 04:30 05:00 Temperature Pulse Rate 86 87 87 Respiratory 18 18 Rate Blood Pressure 07/07/18 07/07/18 07/07/18 05:30 06:00 06:30 Temperature 97.7 F Pulse Rate 86 89 89 Respiratory 18 Rate Blood Pressure 119/87 07/07/18 07/07/18 07/07/18 07:00 07:30 08:00 Temperature Pulse Rate 87 86 86 Respiratory 18 Rate Blood Pressure 07/07/18 09:54 Temperature 97.0 F L Pulse Rate 78 Respiratory 18 Rate Blood Pressure 122/73 labs pending. ass/plan: alcohol use disorder: continue alcohol detox protocol
[2018-07-07] MEDS: NICOTINE 14 MG/24 HOURS TOPICAL PATCH TD SCH (10:32)
[2018-07-07] MEDS: PRENATAL VITAMINS W/ FOLIC ACID TABLET (FP) PO SCH (10:32)
[2018-07-07] MEDS: THIAMINE HCL 100 MG TABLET (FP) PO SCH (22:30)
[2018-07-08] MEDS: chlordiazePOXIDE HCL 25 MG CAPSULE PO SCH ×3 (05:14→17:18)
[2018-07-08] MEDS: MENTHOL/PHENOL 1 EACH UD MM PRN ×2 (05:15→22:31)
[2018-07-08] MEDS: PRENATAL VITAMINS W/ FOLIC ACID TABLET (FP) PO SCH (10:20)
[2018-07-08] MEDS: NICOTINE 14 MG/24 HOURS TOPICAL PATCH TD SCH (10:20)
--- NOTE | 2018-07-08 12:51 | PN ---
S CIWA - CIWA Score Nausea/Vomitin-No Nausea/No Vomiting Muscle Tremors: None Anxiety: 5 Agitation: 0-Normal Activity Paroxysmal Sweats: 2 Orientation: 0-Oriented Tacttile Disturbances: 0-None Auditory Disturbances: 0-None Visual Disturbances: 2-Mild Sensitivity Headache: 0-None Present CIWA-Ar Total Score: 9 BHS Progress Note (SOAP) Subjective: Anxious, Sweating. Objective: PATIENT A & O X 3. NO ACUTE DISTRESS. 07/08/18 12:52 Vital Signs Temperature 98.2 F 07/08/18 09:59 Pulse Rate 69 07/08/18 09:59 Respiratory Rate 17 07/08/18 09:59 Blood Pressure 127/82 07/08/18 09:59 O2 Sat by Pulse Oximetry (%) 07/08/18 12:55 CBC, CMP RESULTS NOTED. RPR, UA RESULTS PENDING. Assessment: 07/08/18 12:56 WITHDRAWAL SYMPTOMS. Plan: CONTINUE DETOX.
[2018-07-08 16:40] LABS: URINE APPEARANCE CLEAR; URINE BILIRUBIN NEGATIVE (<2.0 mg/dL); URINE COLOR YELLOW; URINE GLUCOSE (UA) NEGATIVE (NEGATIVE); URINE KETONE NEGATIVE (NEGATIVE); URINE LEUK ESTERASE NEGATIVE (NEGATIVE); URINE NITRITE NEGATIVE (NEGATIVE); URINE PROTEIN NEGATIVE (NEGATIVE); URINE UROBILINOGEN NEGATIVE mg/dL (0.2-1.0)
[2018-07-08] MEDS: THIAMINE HCL 100 MG TABLET (FP) PO SCH (22:31)
[2018-07-08] MEDS: chlordiazePOXIDE 5 MG CAPSULE PO SCH (22:31)
[2018-07-09] MEDS: chlordiazePOXIDE 5 MG CAPSULE PO SCH ×3 (05:54→18:12)
[2018-07-09] MEDS: MENTHOL/PHENOL 1 EACH UD MM PRN (05:56)
[2018-07-09] MEDS: PRENATAL VITAMINS W/ FOLIC ACID TABLET (FP) PO SCH (10:17)
[2018-07-09] MEDS: NICOTINE 14 MG/24 HOURS TOPICAL PATCH TD SCH (10:18)
--- NOTE | 2018-07-09 11:13 | PN ---
B[facility] Progress Note (SOAP) Subjective: feeling better little sweats Objective: 07/09/18 11:13 Vital Signs Temperature 97.5 F L 07/09/18 09:35 Pulse Rate 73 07/09/18 09:35 Respiratory Rate 18 07/09/18 09:35 Blood Pressure 96/58 L 07/09/18 09:35 O2 Sat by Pulse Oximetry (%) [id number] ambulating no acute distress Assessment: 07/09/18 11:13 mild withdrawal sx Plan: continue detox increase fluids d/c in am
--- NOTE | 2018-07-09 15:54 | PN ---
S Progress Note Note: pt is ready for rehab. pt will be d/c to rehab today.
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
[2018-07-09 16:33] VITALS: BP 117/79; PULSE 83; TEMP 97.7
[2018-07-09] MEDS ORDERED: chlordiazePOXIDE HCL 10 MG CAPSULE PO SCH (23:00)
== END 2018-07-09 18:13 | disposition other institution (70) | DRG 775 ==
LOC: YASAS 18:03 → Y6N 21:53
PROC: HZ2ZZZZ Detoxification Services for Substance Abuse Treatment (ICD-10-PCS; principal; 2018-07-06)
DX: F10.230 Alcohol dependence with withdrawal, uncomplicated (principal); F17.210 Nicotine dependence, cigarettes, uncomplicated; F19.24 Other psychoactive substance dependence with psychoactive substance-induced mood disorder; G40.509 Epileptic seizures related to external causes, not intractable, without status epilepticus; Z86.79 Personal history of other diseases of the circulatory system
CPT/HCPCS: 36415; 81003; 86593

== ENCOUNTER 2018-07-09 16:44 | Inpatient (IN) | payer OTHER ==
--- NOTE | 2018-07-09 21:04 | HP ---
[facility] Rehab Assess/Revision - Admission History Admitted to Rehab from: [facility] [address] [place] Date of Admission to Rehab: 07/09/2018 - Vital signs Vital Signs: Last Vital Signs Temp Pulse Resp BP Pulse Ox 97.7 F 83 16 117/79 07/09/18 16:32 07/09/18 16:32 07/09/18 16:32 07/09/18 16:32 - Findings Detox History & Physical reviewed: Yes Concur with findings: Yes Inpatient Rehab Admission - Initial Determination Are CD services needed?: Yes Free of communicable disease: Yes Not in need of hospitalization: Yes - Rehab Admission Criteria Previous failed treatment: Yes Poor recovery environment: Yes Comorbidities: Yes Lacks judgement: No Patient is meeting Inpatient Rehab admission criteria:: Yes
[2018-07-09] MEDS ORDERED: IBUPROFEN 400 MG TABLET (FP) PO PRN (21:06)
[2018-07-09] MEDS ORDERED: MAGNESIUM HYDROX 2400MG/30ML ORAL SUSPENSION 30 ML CUP PO PRN (21:06)
[2018-07-09] MEDS ORDERED: ACETAMINOPHEN 325 MG TABLET (FP) PO PRN (21:06)
[2018-07-09] MEDS ORDERED: LOPERAMIDE HCL 2 MG CAPSULE PO PRN (21:06)
[2018-07-09] MEDS ORDERED: MAGNESIUM CITRATE 300 ML BOTTLE PO PRN (21:06)
[2018-07-09] MEDS ORDERED: MAG HYDROX/AL HYDROX/SIMETH 30 ML UNIT-DOSE CUP PO PRN (21:06)
[2018-07-09] MEDS: MELATONIN 5 MG TABLETS PO PRN (21:46)
[2018-07-09] MEDS: THIAMINE HCL 100 MG TABLET (FP) PO SCH (21:46)
[2018-07-09] MEDS: hydrOXYzine PAMOATE 50 MG CAPSULE (FP) PO PRN (21:46)
[2018-07-09] MEDS: MENTHOL/PHENOL 1 EACH UD MM PRN (21:47)
[2018-07-10] MEDS: PRENATAL VITAMINS W/ FOLIC ACID TABLET (FP) PO SCH (10:08)
[2018-07-10] MEDS: MELATONIN 5 MG TABLETS PO PRN (22:39)
[2018-07-10] MEDS: THIAMINE HCL 100 MG TABLET (FP) PO SCH (22:39)
[2018-07-10] MEDS: MENTHOL/PHENOL 1 EACH UD MM PRN (22:40)
[2018-07-10] MEDS: hydrOXYzine PAMOATE 50 MG CAPSULE (FP) PO PRN (22:40)
[2018-07-11] MEDS: MENTHOL/PHENOL 1 EACH UD MM PRN (09:44)
[2018-07-11] MEDS: PRENATAL VITAMINS W/ FOLIC ACID TABLET (FP) PO SCH (09:44)
[2018-07-11] MEDS: MELATONIN 5 MG TABLETS PO PRN (21:49)
[2018-07-11] MEDS: THIAMINE HCL 100 MG TABLET (FP) PO SCH (21:49)
[2018-07-11] MEDS: hydrOXYzine PAMOATE 50 MG CAPSULE (FP) PO PRN (21:49)
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
[2018-07-12] MEDS: PRENATAL VITAMINS W/ FOLIC ACID TABLET (FP) PO SCH (10:14)
[2018-07-12] MEDS: MENTHOL/PHENOL 1 EACH UD MM PRN ×2 (15:48→22:02)
[2018-07-12] MEDS ORDERED: guaiFENesin 200 MG/10 ML 10 ML UNIT-DOSE CUPS PO PRN (16:01)
[2018-07-12] MEDS ORDERED: PT OWN MED DRAWER 7, Y5N ONE (20:22)
[2018-07-12] MEDS: MELATONIN 5 MG TABLETS PO PRN (22:01)
[2018-07-12] MEDS: THIAMINE HCL 100 MG TABLET (FP) PO SCH (22:01)
[2018-07-12] MEDS: hydrOXYzine PAMOATE 50 MG CAPSULE (FP) PO PRN (22:01)
[2018-07-13] MEDS: hydrOXYzine PAMOATE 50 MG CAPSULE (FP) PO PRN (10:14)
[2018-07-13] MEDS: PRENATAL VITAMINS W/ FOLIC ACID TABLET (FP) PO SCH (10:14)
[2018-07-13] MEDS: MENTHOL/PHENOL 1 EACH UD MM PRN (10:16)
[2018-07-13] MEDS: SUVOREXANT 10 MG TABLET PO PRN (22:00)
[2018-07-13] MEDS: THIAMINE HCL 100 MG TABLET (FP) PO SCH (22:00)
[2018-07-14] MEDS: MENTHOL/PHENOL 1 EACH UD MM PRN (10:14)
[2018-07-14] MEDS: hydrOXYzine PAMOATE 50 MG CAPSULE (FP) PO PRN (10:14)
[2018-07-14] MEDS: PRENATAL VITAMINS W/ FOLIC ACID TABLET (FP) PO SCH (10:14)
[2018-07-14] MEDS: THIAMINE HCL 100 MG TABLET (FP) PO SCH (21:49)
[2018-07-14] MEDS: SUVOREXANT 10 MG TABLET PO PRN (21:50)
[2018-07-14] MEDS: MELATONIN 5 MG TABLETS PO PRN (21:50)
[2018-07-15] MEDS: PRENATAL VITAMINS W/ FOLIC ACID TABLET (FP) PO SCH (10:03)
[2018-07-15] MEDS: MENTHOL/PHENOL 1 EACH UD MM PRN (18:01)
[2018-07-15] MEDS: THIAMINE HCL 100 MG TABLET (FP) PO SCH (22:24)
[2018-07-15] MEDS: hydrOXYzine PAMOATE 50 MG CAPSULE (FP) PO PRN (22:24)
[2018-07-15] MEDS: SUVOREXANT 10 MG TABLET PO PRN (22:24)
[2018-07-15] MEDS: MELATONIN 5 MG TABLETS PO PRN (22:25)
[2018-07-16] MEDS: PRENATAL VITAMINS W/ FOLIC ACID TABLET (FP) PO SCH (10:58)
[2018-07-16] MEDS: MENTHOL/PHENOL 1 EACH UD MM PRN (10:59)
[2018-07-16] MEDS: hydrOXYzine PAMOATE 50 MG CAPSULE (FP) PO PRN ×2 (10:59→22:01)
--- NOTE | 2018-07-16 13:32 | PN ---
S Progress Note Note: Psychiatry Attending's note : Medications revisited. Suvorexant 10 mg po hs. Order renewed.
[2018-07-16] MEDS: THIAMINE HCL 100 MG TABLET (FP) PO SCH (22:00)
[2018-07-16] MEDS: SUVOREXANT 10 MG TABLET PO PRN (22:01)
[2018-07-16] MEDS: MELATONIN 5 MG TABLETS PO PRN (22:01)
[2018-07-17] MEDS: PRENATAL VITAMINS W/ FOLIC ACID TABLET (FP) PO SCH (10:14)
[2018-07-17] MEDS: hydrOXYzine PAMOATE 50 MG CAPSULE (FP) PO PRN ×2 (10:14→21:58)
[2018-07-17] MEDS: MENTHOL/PHENOL 1 EACH UD MM PRN ×3 (10:15→21:58)
[2018-07-17] MEDS: MELATONIN 5 MG TABLETS PO PRN (21:58)
[2018-07-17] MEDS: SUVOREXANT 10 MG TABLET PO PRN (21:58)
[2018-07-17] MEDS: THIAMINE HCL 100 MG TABLET (FP) PO SCH (23:44)
[2018-07-18] MEDS: PRENATAL VITAMINS W/ FOLIC ACID TABLET (FP) PO SCH (10:27)
[2018-07-18] MEDS: MENTHOL/PHENOL 1 EACH UD MM PRN ×2 (12:04→16:56)
[2018-07-18] MEDS: MELATONIN 5 MG TABLETS PO PRN (22:00)
[2018-07-18] MEDS: SUVOREXANT 10 MG TABLET PO PRN (22:00)
[2018-07-18] MEDS: hydrOXYzine PAMOATE 50 MG CAPSULE (FP) PO PRN (22:00)
[2018-07-18] MEDS: THIAMINE HCL 100 MG TABLET (FP) PO SCH (22:01)
[2018-07-19] MEDS: MENTHOL/PHENOL 1 EACH UD MM PRN ×4 (06:48→22:04)
[2018-07-19] MEDS: PRENATAL VITAMINS W/ FOLIC ACID TABLET (FP) PO SCH (11:02)
[2018-07-19] MEDS ORDERED: PT OWN MED DRAWER 7, Y5N ONE (15:28)
[2018-07-19] MEDS: MELATONIN 5 MG TABLETS PO PRN (22:03)
[2018-07-19] MEDS: THIAMINE HCL 100 MG TABLET (FP) PO SCH (22:03)
[2018-07-19] MEDS: hydrOXYzine PAMOATE 50 MG CAPSULE (FP) PO PRN (22:03)
[2018-07-20] MEDS: PRENATAL VITAMINS W/ FOLIC ACID TABLET (FP) PO SCH (10:07)
[2018-07-20] MEDS: MENTHOL/PHENOL 1 EACH UD MM PRN (19:01)
[2018-07-20] MEDS: hydrOXYzine PAMOATE 50 MG CAPSULE (FP) PO PRN (22:14)
[2018-07-20] MEDS: MELATONIN 5 MG TABLETS PO PRN (22:14)
[2018-07-20] MEDS: THIAMINE HCL 100 MG TABLET (FP) PO SCH (22:14)
[2018-07-21] MEDS: PRENATAL VITAMINS W/ FOLIC ACID TABLET (FP) PO SCH (10:04)
--- NOTE | 2018-07-21 12:21 | PN ---
Psychiatric Progress Note Vital Signs: Vital Signs Period Temp Pulse Resp BP Sys/Bennett Pulse Ox Last 24 Hr 97.5 F 69 18-20 110/69 Date of Session: 07/21/18 Chief Complaint:: " I cannot sleep at night ". HPI: Called to evaluate this patient who continues to complain of insomnia. Hospital course is, otherwise, uneventful. ROS: Unremarkable. Current Medications: Active Medications Generic Name Dose Route Start Last Admin Trade Name Freq PRN Reason Stop Dose Admin Acetaminophen 650 mg 07/09/18 21:06 Tylenol - PO Q4H PRN FEVER Al Hydroxide/Mg Hydroxide 30 ml 07/09/18 21:06 Mylanta Oral Suspension - PO Q6H PRN DYSPEPSIA Eucalyptus/Menthol/Phenol/Sorbitol 1 each 07/09/18 21:06 07/20/18 19:01 Cepastat Lozenge - MM 1 each Q4H PRN Administration SORE THROAT Guaifenesin 10 ml 07/12/18 16:01 Robitussin - PO Q4H PRN COUGH Hydroxyzine Pamoate 50 mg 07/09/18 21:06 07/20/18 22:14 Vistaril - PO 50 mg Q4H PRN Administration AGITATION Ibuprofen 400 mg 07/09/18 21:06 Motrin - PO Q6H PRN Pain Level 4-6 Loperamide HCl 4 mg 07/09/18 21:06 Imodium - PO Q6H PRN DIARRHEA Magnesium Citrate 300 ml 07/09/18 21:06 Citroma - PO Q48H PRN CONSTIPATION Magnesium Hydroxide 30 ml 07/09/18 21:06 Milk Of Magnesia - PO DAILY PRN CONSTIPATION Multivit/Folic Acid/Iron 1 tab 07/10/18 10:00 07/21/18 10:04 Vitamins (Sjr) - PO 1 tab DAILY ALOK Administration Thiamine HCl 100 mg 07/09/18 22:00 07/20/18 22:14 Vitamin B1 - PO 100 mg HS ALOK Administration Trazodone HCl 50 mg 07/21/18 22:00 Desyrel - PO HS ALOK Medication(s) Change(s): Patient agrees to a trial of trazodone given at the dose of 50 mg po hs. Side effects/benefits discussed. Mr Gottlieb is made aware of the risk of priapism and he is instructed to alert RN/MD if occurrence of prolonged/painful erection. Information is aknowledged and the patient expresses his agreement with this plan of care. Current Side Effect: No Lab tests ordered: No Lab tests reviewed: Yes Provider note:: Chart reviewed. Multidisciplinary notes are appreciated. Patient seen. Doing well. Active, sociable, well related and adherent to his treatment plan. Still with complaint of insomnia. Refer to Medications section ( above) for details about therapeutic interventions (sleep hygiene + medication) . Stable mental status. Total face to face time:: 25 Mental Status Exam - Mental Status Exam Alert and Oriented to: Time, Place, Person Cognitive Function: Good Patient Appearance: Well Groomed Mood: Hopeful, Euthymic Affect: Appropriate, Normal Range Patient Behavior: Cooperative Speech Pattern: Clear, Appropriate Voice Loudness: Normal Thought Process: Intact, Goal Oriented Thought Disorder: Not Present Hallucinations: Denies Suicidal Ideation: Denies Homicidal Ideation: Denies Insight/Judgement: Fair Sleep: Poorly, Difficulty falling asleep Appetite: Good Muscle strength/Tone: Rigidity Gait/Station: Normal Psychiatric Treatment Plan - Problem List (1) Alcohol dependence Current Visit: Yes Comment: . (2) Nicotine dependence Current Visit: Yes Qualifiers: Nicotine product type: cigarettes Substance use status: uncomplicated Qualified Code(s): F17.210 - Nicotine dependence, cigarettes, uncomplicated Comment: . (3) Insomnia Current Visit: Yes Comment: .
[2018-07-21] MEDS: THIAMINE HCL 100 MG TABLET (FP) PO SCH (21:58)
[2018-07-21] MEDS: traZODone HCL 50 MG TABLET (FP) PO SCH (22:00)
[2018-07-22] MEDS: PRENATAL VITAMINS W/ FOLIC ACID TABLET (FP) PO SCH (10:00)
[2018-07-22] MEDS: MENTHOL/PHENOL 1 EACH UD MM PRN ×2 (16:51→22:03)
[2018-07-22] MEDS: hydrOXYzine PAMOATE 50 MG CAPSULE (FP) PO PRN (22:03)
[2018-07-22] MEDS: traZODone HCL 50 MG TABLET (FP) PO SCH (22:03)
[2018-07-22] MEDS: THIAMINE HCL 100 MG TABLET (FP) PO SCH (22:03)
[2018-07-23] MEDS: PRENATAL VITAMINS W/ FOLIC ACID TABLET (FP) PO SCH (11:01)
--- NOTE | 2018-07-23 19:23 | PN ---
SAC[facility] Progress Note Note: Psychiatry Attending's note (follow up) : Patient asked to see psychiatrist. Issue : prolonged erection last night. Mr Gottlieb is concerned. Apprehensive. Denies penile pain. No symptoms during daytime. Intervention : Trazodone is discontinued. Reassurance provided to the patient. Observe.
[2018-07-23] MEDS: hydrOXYzine PAMOATE 50 MG CAPSULE (FP) PO PRN (22:19)
[2018-07-23] MEDS: THIAMINE HCL 100 MG TABLET (FP) PO SCH (22:19)
[2018-07-24] MEDS: PRENATAL VITAMINS W/ FOLIC ACID TABLET (FP) PO SCH (09:44)
[2018-07-24] MEDS: THIAMINE HCL 100 MG TABLET (FP) PO SCH (21:54)
[2018-07-25] MEDS: PRENATAL VITAMINS W/ FOLIC ACID TABLET (FP) PO SCH (10:55)
[2018-07-25] MEDS ORDERED: SUVOREXANT 10 MG TABLET PO PRN (22:00)
[2018-07-25] MEDS: THIAMINE HCL 100 MG TABLET (FP) PO SCH (23:05)
[2018-07-26 07:10] VITALS: BP 119/77; PULSE 68; TEMP 97.4
[2018-07-26] MEDS: PRENATAL VITAMINS W/ FOLIC ACID TABLET (FP) PO SCH (10:13)
--- NOTE | 2018-07-26 11:30 | PN ---
Psychiatric Progress Note Vital Signs: Vital Signs Period Temp Pulse Resp BP Sys/Bennett Pulse Ox Last 24 Hr 97.4 F 68 18-18 119/77 Date of Session: 07/26/18 Chief Complaint:: Discharge Note HPI: Patient adressing Alcohol Dependence comorbid with Nicotine Dependence and Alcohol-Induced Sleep Disorder Current Medications: Active Medications Generic Name Dose Route Start Last Admin Trade Name Freq PRN Reason Stop Dose Admin Acetaminophen 650 mg 07/09/18 21:06 Tylenol - PO Q4H PRN FEVER Al Hydroxide/Mg Hydroxide 30 ml 07/09/18 21:06 Mylanta Oral Suspension - PO Q6H PRN DYSPEPSIA Eucalyptus/Menthol/Phenol/Sorbitol 1 each 07/09/18 21:06 07/22/18 22:03 Cepastat Lozenge - MM 1 each Q4H PRN Administration SORE THROAT Guaifenesin 10 ml 07/12/18 16:01 Robitussin - PO Q4H PRN COUGH Hydroxyzine Pamoate 50 mg 07/09/18 21:06 07/23/18 22:19 Vistaril - PO 50 mg Q4H PRN Administration AGITATION Ibuprofen 400 mg 07/09/18 21:06 Motrin - PO Q6H PRN Pain Level 4-6 Loperamide HCl 4 mg 07/09/18 21:06 Imodium - PO Q6H PRN DIARRHEA Magnesium Citrate 300 ml 07/09/18 21:06 Citroma - PO Q48H PRN CONSTIPATION Magnesium Hydroxide 30 ml 07/09/18 21:06 Milk Of Magnesia - PO DAILY PRN CONSTIPATION Multivit/Folic Acid/Iron 1 tab 07/10/18 10:00 07/26/18 10:13 Vitamins (Sjr) - PO 1 tab DAILY ALOK Administration Suvorexant 10 mg 07/25/18 22:00 07/25/18 21:45 Belsomra PO 10 mg HS PRN Administration INSOMNIA Thiamine HCl 100 mg 07/09/18 22:00 07/25/18 23:05 Vitamin B1 - PO Not Given HS ALOK Current Side Effect: No Lab tests ordered: Yes Lab tests reviewed: Yes Provider note:: Patient has completed this program today. He has met his treatment goals and jerome continue to address his issues in attending AA. 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 He is stable for discharge today Total face to face time:: 35 Mental Status Exam - Mental Status Exam Alert and Oriented to: Time, Place, Person Cognitive Function: Fair Patient Appearance: Well Groomed Mood: Hopeful, Euthymic Affect: Appropriate Patient Behavior: Cooperative Speech Pattern: Clear Voice Loudness: Normal Thought Process: Intact, Goal Oriented Thought Disorder: Not Present Hallucinations: Denies Suicidal Ideation: Denies Homicidal Ideation: Denies Insight/Judgement: Fair Sleep: Fair Appetite: Good Muscle strength/Tone: Normal Gait/Station: Normal Psychiatric Treatment Plan - Problem List (1) Alcohol dependence Current Visit: Yes Comment: . (2) Nicotine dependence Current Visit: Yes Qualifiers: Nicotine product type: cigarettes Substance use status: uncomplicated Qualified Code(s): F17.210 - Nicotine dependence, cigarettes, uncomplicated Comment: . (3) Alcohol-induced sleep disorder Current Visit: Yes (4) Seizure Current Visit: No (5) Traumatic fracture of facial bones Current Visit: No Initial treatment plan: Patient is discharged today and will be addressing his issues by attending AA as he refused referral to outpatient treatment
== END 2018-07-26 11:40 | disposition home or self-care (01) | DRG 772 ==
LOC: YASAS 16:44 → Y3W 18:45
PROVIDERS: ADMIT Psychiatry & Neurology Psychiatry; ATTEND Psychiatry & Neurology Psychiatry
PROC: HZ42ZZZ Group Counseling for Substance Abuse Treatment, Cognitive-Behavioral (ICD-10-PCS; principal; 2018-07-09)
DX: F10.20 Alcohol dependence, uncomplicated (principal); F17.210 Nicotine dependence, cigarettes, uncomplicated; F10.282 Alcohol dependence with alcohol-induced sleep disorder; G47.00 Insomnia, unspecified; Z86.69 Personal history of other diseases of the nervous system and sense organs; Z87.81 Personal history of (healed) traumatic fracture

== ENCOUNTER 2019-10-12 19:17 | Emergency (ER) | payer OTHER ==
[2019-10-12 19:31] VITALS: BMI 21.9
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
[2019-10-12] MEDS ORDERED: SODIUM CHLORIDE 0.9% 500 ML INFUS.BAG IV ONE (21:07)
[2019-10-12 22:03] LABS: BASO % 0.1 % (0-2.0); EOS % 0.1 % (0-4.5); HEMATOCRIT 41.7 % (35.4-49); HEMOGLOBIN 13.8 GM/dL (11.7-16.9); MCH 29.4 pg (25.7-33.7); MCHC 33.1 g/dl (32.0-35.9); MEAN CELL VOLUME 88.6 fl (80-96); MEAN PLT VOLUME 10.1 fl (7.5-11.1); MONO % 10.3 % (3.8-10.2); NEUT % 84.5 % (42.8-82.8); RBC 4.71 M/mm3 (4.00-5.60); RDW 13.8 % (11.9-15.9); WHITE BLOOD COUNT 8.3 K/mm3 (4.0-10.0)
[2019-10-12 22:08] LABS: PLATELET COUNT 20 K/MM3 (134-434)
--- NOTE | 2019-10-12 22:38 | PDOC ---
*Physical Exam - Vital Signs Last Vital Signs Temp Pulse Resp BP Pulse Ox 97.5 F L 112 H 20 91/52 L 95 10/12/19 19:24 10/12/19 19:24 10/12/19 19:24 10/12/19 19:24 10/12/19 19:24 ED Treatment Course - LABORATORY CBC & Chemistry Diagram: 10/12/19 21:10 10/12/19 21:10 - ADDITIONAL ORDERS Additional order review: 10/12/19 21:10 RBC 4.71 MCV 88.6 MCHC 33.1 RDW 13.8 MPV 10.1 D Neutrophils % 84.5 H D Lymphocytes % 5.0 L D Monocytes % 10.3 H Eosinophils % 0.1 D Basophils % 0.1 - RADIOLOGY Radiology Studies Ordered: Category Date Time Status ABDOMEN & PELVIS CT WITH CONTR [CT] Stat CT Scan 10/12/19 22:[address] WITH CONTRAST [CT] Stat CT Scan 10/12/19 22:31 Ordered Medical Decision Making - Medical Decision Making 10/12/19 22:35 Sister Fabi Discharge - Discharge Information Problems reviewed: Yes Clinical Impression/Diagnosis: Upper GI bleed - Follow up/Referral Referrals: Doris Porter MD [Primary Care Provider] - - Patient Discharge Instructions - Post Discharge Activity
[2019-10-12] MEDS ORDERED: OCTREOTIDE ACETATE 50 MCG/1 ML - 1 ML VIAL IVPUSH ONE (22:42)
[2019-10-12] MEDS ORDERED: FAMOTIDINE 20 MG/50 ML IVPB 20 MG/50 ML MG IVPB ONE ×2 (22:42→23:00)
[2019-10-12] MEDS ORDERED: PANTOPRAZOLE SODIUM 40 MG VIAL IVPUSH ONE (22:47)
[2019-10-12 22:58] LABS: ALBUMIN 3.7 g/dl (3.4-5.0); ALK PHOS 193 U/L (45-117); ANION GAP 26 MMOL/L (8-16); BILIRUBIN,TOTAL 5.4 mg/dL (0.2-1); BLOOD UREA NITROGEN 30.6 mg/dL (7-18); CALCIUM 8.9 mg/dL (8.5-10.1); CHLORIDE 89 mmol/L (98-107); CO2 16 mmol/L (21-32); CREATININE 3.5 mg/dL (0.55-1.3); GLUCOSE,RANDOM 55 mg/dL (74-106); LIPASE 207 U/L (73-393); POTASSIUM 5.7 mmol/L (3.5-5.1); SGOT/AST > 20000 U/L (15-37); SODIUM 131 mmol/L (136-145); TOT PROT 7.8 g/dl (6.4-8.2)
[2019-10-12 22:59] LABS: PROTHROMBIN TIME (PATIENT) 56.6 SEC (9.7-13.0)
[2019-10-12 23:00] LABS: SGPT/ALT 5215 U/L (13-61)
[2019-10-12] MEDS ORDERED: PANTOPRAZOLE SODIUM 40 MG VIAL ONE (23:00)
[2019-10-12] MEDS ORDERED: OCTREOTIDE ACETATE 200 MCG, OCTREOTIDE ACETATE 1,000 MCG in DEXTROSE 5%-WATER - 496 ML IVPB SCH (23:00)
[2019-10-12] MEDS ORDERED: OCTREOTIDE ACETATE 100 MCG/1 ML ONE (23:01)
[2019-10-12 23:02] LABS: ACTIVATED PTT 42.3 SECONDS (25.2-36.5)
[2019-10-12 23:05] LABS: INR 4.72 (0.83-1.09)
[2019-10-12 23:12] LABS: LIPASE 210 U/L (73-393)
[2019-10-12] MEDS ORDERED: LACTATED RINGERS SOLUTION 1,000 ML/1,000 ML INFUS.BAG IV STA (23:14)
--- NOTE | 2019-10-13 02:32 | PDOC ---
*Physical Exam - Vital Signs Last Vital Signs Temp Pulse Resp BP Pulse Ox 97.5 F L 99 H 16 93/59 L 99 10/12/19 19:24 10/13/19 01:06 10/13/19 01:06 10/13/19 01:06 10/13/19 01:06 ED Treatment Course - LABORATORY CBC & Chemistry Diagram: 10/12/19 21:10 10/12/19 21:10 - ADDITIONAL ORDERS Additional order review: Laboratory Results 10/12/19 10/12/19 10/12/19 22:00 22:00 22:00 PT with INR 56.60 H INR 4.72 H* PTT (Actin FS) 42.3 H D-Dimer Sodium Potassium Chloride Carbon Dioxide Anion Gap BUN Creatinine Est GFR (CKD-EPI)AfAm Est GFR (CKD-EPI)NonAf Random Glucose Lactic Acid 13.4 H* Calcium Total Bilirubin AST ALT Alkaline Phosphatase Creatine Kinase Creatine Kinase Index CK-MB (CK-2) Troponin I Total Protein Albumin Lipase Alcohol, Quantitative Blood Type Cancelled Antibody Screen Cancelled 10/12/19 10/12/19 10/12/19 22:00 22:00 21:10 PT with INR INR PTT (Actin FS) D-Dimer 07067 H Sodium 131 L Potassium 5.7 H Chloride 89 L Carbon Dioxide 16 L Anion Gap 26 H BUN 30.6 H Creatinine 3.5 H Est GFR (CKD-EPI)AfAm 22.42 Est GFR (CKD-EPI)NonAf 19.35 Random Glucose 55 L Lactic Acid Calcium 8.9 Total Bilirubin 5.4 H AST > 33727 H ALT 5215 H Alkaline Phosphatase 193 H Creatine Kinase 381 H 386 H Creatine Kinase Index No Result Required. No Result Required. CK-MB (CK-2) < 1.0 < 1.0 Troponin I < 0.02 < 0.02 Total Protein 7.8 Albumin 3.7 Lipase 210 207 Alcohol, Quantitative Blood Type Antibody Screen 10/12/19 21:10 PT with INR INR PTT (Actin FS) D-Dimer Sodium Potassium Chloride Carbon Dioxide Anion Gap BUN Creatinine Est GFR (CKD-EPI)AfAm Est GFR (CKD-EPI)NonAf Random Glucose Lactic Acid Calcium Total Bilirubin AST ALT Alkaline Phosphatase Creatine Kinase Creatine Kinase Index CK-MB (CK-2) Troponin I Total Protein Albumin Lipase Alcohol, Quantitative < 3 Blood Type Antibody Screen 10/12/19 21:10 RBC 4.71 MCV 88.6 MCHC 33.1 RDW 13.8 MPV 10.1 D Neutrophils % 84.5 H D Lymphocytes % 5.0 L D Monocytes % 10.3 H Eosinophils % 0.1 D Basophils % 0.1 - RADIOLOGY Radiology Studies Ordered: Category Date Time Status ABDOMEN & PELVIS CT W/O CONTR [CT] Stat CT Scan 10/12/19 23:[address] WITHOUT CONTRAST [CT] Stat CT Scan 10/12/19 23:12 Taken - Medications Given in the ED: ED Medications Discontinued Medications Generic Name Dose Route Start Last Admin Trade Name Freq PRN Reason Stop Dose Admin Famotidine/Sodium Chloride 20 mg in 50 mls @ 100 mls/hr 10/12/19 22:42 23:03 Pepcid 20 Mg Premixed Ivpb - IVPB 10/12/19 23:11 Not Given ONCE ONE Lactated Ringer's 1,000 ml in 1,000 mls @ 1,000 mls/hr 10/12/19 23:14 23:20 Lactated Ringers Solution IV 10/13/19 00:13 1,000 mls/hr ONCE STA Administration Octreotide Acetate 50 mcg 10/12/19 22:42 10/12/19 23:45 Sandostatin - IVPUSH 10/12/19 22:43 50 mcg ONCE ONE Administration Pantoprazole Sodium 40 mg 10/12/19 22:47 10/12/19 23:12 Protonix Iv IVPUSH 10/12/19 22:48 40 mg ONCE ONE Administration Sodium Chloride 1,000 ml 10/12/19 21:07 10/12/19 22:05 Normal Saline - IV 10/12/19 21:08 1,000 ml ONCE ONE Administration Discharge - Discharge Information Problems reviewed: Yes Clinical Impression/Diagnosis: Upper GI bleed, Acute liver failure, Hepatorenal syndrome, Shock liver Condition: Critical Disposition: TRANSFER ACUTE CARE/OTHER HOSP - Follow up/Referral Referrals: Doris Porter MD [Primary Care Provider] - - Patient Discharge Instructions - Post Discharge Activity - Transfer to Acute Care Facility Receiving Facility Name: [facility] Accepting Physician:: Dr. Gross
[2019-10-13 06:41] VITALS: BP 93/62; PULSE 98
[2019-10-13 06:42] VITALS: TEMP 98
--- NOTE | 2019-10-13 14:14 | EKG ---
Test Reason : Blood Pressure : / mmHG Vent. Rate : 109 BPM Atrial Rate : 109 BPM P-R Int : 120 ms QRS Dur : 066 ms QT Int : 350 ms P-R-T Axes : 075 080 083 degrees QTc Int : 471 ms SINUS TACHYCARDIA SEPTAL INFARCT (CITED ON OR BEFORE 04-JUL-2018) ABNORMAL ECG WHEN COMPARED WITH ECG OF 06-JUL-2018 08:49, QUESTIONABLE CHANGE IN INITIAL FORCES OF SEPTAL LEADS Confirmed by CHARISSE DALTON, LAURA ([id number]) on 10/13/2019 2:14:16 PM Referred By: Confirmed By:LAURA MCQUEEN MD
== END 2019-10-13 03:20 | disposition short-term general hospital (02) ==
LOC: JER 19:17
PROC: 3E0337Z Introduction of Electrolytic and Water Balance Substance into Peripheral Vein, Percutaneous Approach (ICD-10-PCS; principal; 2019-10-12)
PROC: 3E033GC Introduction of Other Therapeutic Substance into Peripheral Vein, Percutaneous Approach (ICD-10-PCS; 2019-10-12)
PROC: 3E033GC Introduction of Other Therapeutic Substance into Peripheral Vein, Percutaneous Approach (ICD-10-PCS; 2019-10-12)
DX: K92.2 Gastrointestinal hemorrhage, unspecified (principal); K72.00 Acute and subacute hepatic failure without coma; K76.7 Hepatorenal syndrome; K92.0 Hematemesis; R00.0 Tachycardia, unspecified; F10.10 Alcohol abuse, uncomplicated; Z86.69 Personal history of other diseases of the nervous system and sense organs
CPT/HCPCS: 36415; 70450-TC; 71250-TC; 74176-TC; 80053; 80307; 82550; 82553; 83605; 83690; 84484; 85025; 85379; 85610; 85730; 93005; 93010; 99291; 99292

== ENCOUNTER 2022-04-30 19:30 | Emergency (ER) | payer OTHER ==
[2022-04-30 19:38] VITALS: BP 124/85; PULSE 71; RESP 18; TEMP 98; BMI 21.9
[2022-04-30] MEDS ORDERED: IBUPROFEN 600 MG TABLET (FP) PO ONE ×2 (20:26→20:29)
== END 2022-04-30 20:50 | disposition home or self-care (01) ==
LOC: JERFT 19:30
DX: M54.9 Dorsalgia, unspecified (principal); V87.2XXA Person injured in collision between car and pick-up truck or van (traffic), initial encounter; Y92.9 Unspecified place or not applicable
CPT/HCPCS: 99283-25

== ENCOUNTER 2022-06-23 18:19 | Emergency (ER) | payer OTHER ==
[2022-06-23] MEDS ORDERED: methylPREDNISolone NA SUCC 125 MG/2 ML VIAL IVPUSH ONE (19:15)
[2022-06-23] MEDS ORDERED: ALBUTEROL SO4 2.5/IPRATROPIUM 0.5 INH SOL 3 ML VIAL.NEB. NEB ONE ×4 (19:15→19:44)
[2022-06-23] MEDS ORDERED: ALBUTEROL SO4 0.083% IH SOL 2.5 MG/3 ML VIAL.NEB. NEB ONE (19:17)
[2022-06-23 19:22] VITALS: BMI 18.7
[2022-06-23] MEDS ORDERED: LORazepam 2 MG/ML SDV VIAL IM ONE (19:30)
[2022-06-23] MEDS ORDERED: methylPREDNISolone NA SUCC 125 MG/2 ML VIAL ONE ×2 (19:33→19:44)
[2022-06-23] MEDS ORDERED: LORazepam 2 MG/ML SDV VIAL IVPUSH ONE ×2 (20:15→20:30)
[2022-06-23 20:21] LABS: VENOUS BASE EXCESS -2.5 mmol/L (-2-2); VENOUS O2 SATURATION 91.5 % (70-80); VENOUS PCO2 68.7 mmHg (38-52); VENOUS PH 7.213 (7.310-7.410)
[2022-06-23 20:32] LABS: BASO % 0.4 % (0-2.0); EOS % 0.1 % (0-4.5); HEMATOCRIT 38.9 % (35.4-49); HEMOGLOBIN 13.3 GM/dL (11.7-16.9); MCH 29.3 pg (25.7-33.7); MCHC 34.2 g/dl (32.0-35.9); MEAN CELL VOLUME 85.7 fl (80-96); MEAN PLT VOLUME 8.4 fl (7.5-11.1); NEUT % 67.5 % (42.8-82.8); PLATELET COUNT 310 10^3/uL (134-434); RBC 4.54 M/mm3 (4.00-5.60); RDW 11.9 % (11.9-15.9); WHITE BLOOD COUNT 6.5 K/mm3 (4.0-10.0)
[2022-06-23 20:35] LABS: INR 1.02 (0.83-1.09); PROTHROMBIN TIME (PATIENT) 11.7 SEC (9.7-13.0)
[2022-06-23 20:38] LABS: ACTIVATED PTT 37.3 SECONDS (25.2-36.5)
[2022-06-23 20:46] LABS: CALCIUM 9.6 mg/dL (8.5-10.1)
[2022-06-23 20:47] LABS: ALBUMIN 4.1 g/dl (3.4-5.0); BLOOD UREA NITROGEN 7.5 mg/dL (7-18)
[2022-06-23 20:50] LABS: CREATININE 0.6 mg/dL (0.55-1.3)
[2022-06-23 20:51] LABS: TOT PROT 8.1 g/dl (6.4-8.2)
[2022-06-23 20:52] LABS: BILIRUBIN,TOTAL 0.4 mg/dL (0.2-1)
[2022-06-23 20:54] LABS: N-TERMINAL BNP 175.3 pg/ml (5-125)
[2022-06-23 21:39] VITALS: BP 184/89; PULSE 101; RESP 22; TEMP 98.9
== END 2022-06-23 21:40 | disposition short-term general hospital (02) ==
LOC: JER 18:19
PROC: 3E0F7GC Introduction of Other Therapeutic Substance into Respiratory Tract, Via Natural or Artificial Opening (ICD-10-PCS; principal; 2022-06-23)
PROC: 3E0F7GC Introduction of Other Therapeutic Substance into Respiratory Tract, Via Natural or Artificial Opening (ICD-10-PCS; 2022-06-23)
PROC: 3E0F7GC Introduction of Other Therapeutic Substance into Respiratory Tract, Via Natural or Artificial Opening (ICD-10-PCS; 2022-06-23)
PROC: 3E033NZ Introduction of Analgesics, Hypnotics, Sedatives into Peripheral Vein, Percutaneous Approach (ICD-10-PCS; 2022-06-23)
PROC: 3E033NZ Introduction of Analgesics, Hypnotics, Sedatives into Peripheral Vein, Percutaneous Approach (ICD-10-PCS; 2022-06-23)
PROC: 3E033GC Introduction of Other Therapeutic Substance into Peripheral Vein, Percutaneous Approach (ICD-10-PCS; 2022-06-23)
PROC: 3E033GC Introduction of Other Therapeutic Substance into Peripheral Vein, Percutaneous Approach (ICD-10-PCS; 2022-06-23)
DX: R06.02 Shortness of breath (principal); R06.2 Wheezing; D38.0 Neoplasm of uncertain behavior of larynx
CPT/HCPCS: 0241U-QW; 36415; 71045-TC-FY; 80053; 82803; 83880; 84484; 85025; 85610; 85730; 93005; 93010; 99285-25